=== PATIENT | male | born 1990 | race Caucasian/White ===

== ENCOUNTER 2018-02-05 17:37 | Emergency (ER) | payer SELFPAY ==
[~2018-02-05] VITALS: Ht 175.3 cm; Wt 107.0 kg
[2018-02-05 17:44] VITALS: BP 144/105; Ht 175.3 cm; Wt 107.0 kg
== END 2018-02-05 18:27 | disposition home or self-care (01) ==
LOC: ED 17:37
DX: B34.9 Viral infection, unspecified (principal); H92.01 Otalgia, right ear